=== PATIENT | female | born 1940 | race Caucasian/White ===

== ENCOUNTER 2020-11-05 16:16 | Inpatient (IN) ==
[2020-11-05] MEDS ORDERED: Furosemide 40 MG/4 ML VIAL IVP ONE (17:02)
[2020-11-05] MEDS ORDERED: 0.9 % Sodium Chloride 500 ML IVC ONE (17:17)
[2020-11-05 17:23] LABS: Basophils % 0.1 %; Eosinophils # 0.1 K/mcL (0.0-0.6); Eosinophils % 0.6 %; Hemoglobin 12.7 g/dL (11.5-15.4); Immature Granulocytes % 0.4 % (0-4); Lymphocytes # 0.9 K/mcL (0.6-4.6); Lymphocytes % 10.9 %; Mean Corpuscular Hemoglobin 27.8 pg (28.0-33.3); Mean Corpuscular Volume 89.7 fL (83.0-100.0); Mean Platelet Volume 9.5 fL (9.4-12.4); Monocytes # 0.8 K/mcL (0.0-1.3); Monocytes % 9.2 %; Neutrophils # 6.7 K/mcL (1.6-8.9); Platelet Count 201 K/mcL (140-400); Red Blood Count 4.57 M/mcL (3.82-4.97); Red Cell Distribution Width 14.4 % (11.5-14.5); Segmented Neutrophils % 78.8 %; White Blood Count 8.4 K/mcL (4.3-11.1)
[2020-11-05 17:42] LABS: Bacteria,Urine Few per hpf (None-Few); Bilirubin,Urine Negative (Negative); Blood,Urine Negative (Negative); Clarity,Urine Clear (Clear); Color,Urine Yellow (Yellow); Glucose,Urine (UA) 50 mg/dL (Normal); Hyaline Casts,Urine Few per lpf (None Seen); Ketones,Urine Negative (Negative); Leukocyte Esterase,Urine Large (Negative); Mucus,Urine Few per lpf (None-Few); Nitrite,Urine Negative (Negative); PH,Urine 5.5 pH Units (5.0-8.0); Protein,Urine 50 mg/dL (Neg-Trace); RBC,Urine 0-3 per hpf (0-3); Specific Gravity,Urine 1.026 (1.010-1.025); Squamous Epithelial Cell,Urine Few per hpf (None-Few); Urobilinogen,Urine Normal (Normal); WBC,Urine 30-50 per hpf (0-3)
[2020-11-05 17:44] LABS: BUN/Creatinine Ratio 28 (6-26); Blood Urea Nitrogen 15 mg/dL (8-23); Calcium 9.7 mg/dL (8.6-10.3); Carbon Dioxide 25 mEq/L (23-29); Chloride 105 mEq/L (98-107); Glucose 191 mg/dL (70-105); Magnesium 1.6 mg/dL (1.6-2.6); Osmolality,Calculated 296 (280-300); Potassium 3.9 mEq/L (3.5-5.1); Sodium 140 mEq/L (136-145); eGFR For African Americans > 60 (> 60); eGFR For Non-African Americans > 60 (> 60)
[2020-11-05 17:45] LABS: Troponin I 0.03 ng/mL (< 0.04)
[2020-11-05] MEDS ORDERED: Isovue-370 500 ML BOTTLE IVP ONE (17:54)
[2020-11-05 17:58] LABS: Thyroid Stimulating Hormone 1.712 mcIU/mL (0.340-5.600)
[2020-11-05] MEDS ORDERED: DilTIAZem 50 MG/50 ML IV.SOLN IVC SCH (19:00)
[2020-11-05] MEDS ORDERED: *HR* Heparin 5,000 UNIT/ML VIAL IVP ONE ×2 (20:13→21:17)
[2020-11-05] MEDS ORDERED: *HR* Heparin 5,000 UNIT/ML VIAL IVP PRN ×4 (20:13→21:17)
[2020-11-05] MEDS ORDERED: Heparin 25,000UNIT/250ML 1/2NS 25,000 UNIT/250 ML IV.SOLN IVC SCH (20:15)
[2020-11-05] MEDS ORDERED: Acetaminophen 325 MG TABLET PO PRN (21:07)
[2020-11-05] MEDS ORDERED: Ondansetron 4 MG/2 ML VIAL IVP PRN (21:07)
[2020-11-05] MEDS ORDERED: Naloxone 0.4 MG/ML INJ IVP PRN (21:07)
[2020-11-05] MEDS ORDERED: Perflutren Lipid Microsphere 1.3 ML in 0.9 % Sodium Chloride 8.7 ML IVP PRN (21:09)
[2020-11-05] MEDS ORDERED: *HR* Dextrose 50 % in Water (Vial) 50 ML VIAL IVP PRN (21:41)
[2020-11-05] MEDS ORDERED: D5% in Water 1,000 ML IVC PRN (21:41)
[2020-11-05] MEDS ORDERED: Dextrose Gel 15 GM/37.5 ML TUBE PO PRN ×2 (21:41)
[2020-11-05] MEDS: Furosemide 20 MG/2 ML VIAL IVP SCH (22:37)
[2020-11-05] MEDS: Insulin DETEMIR 100 UNIT/ML X5UNITS SUBQ SCH (22:38)
[2020-11-05 23:25] LABS: Heparin anti-factor XA UFH 0.61 IU/mL (0.30-0.70); INR 1.1; Prothrombin Time 13.2 Seconds (9.4-12.1)
[2020-11-05 23:38] LABS: Chol/HDL Ratio 2.6 (0-4.9); Magnesium 1.4 mg/dL (1.6-2.6)
[2020-11-05] MEDS: Heparin 25,000UNIT/250ML 1/2NS 25,000 UNIT/250 ML IV.SOLN IVC SCH (23:49)
[2020-11-06 06:28] LABS: Hematocrit 38.5 % (35.3-44.9); Hemoglobin 11.9 g/dL (11.5-15.4); Mean Corpuscular HGB Conc 30.9 g/dL (31.6-35.5); Mean Corpuscular Hemoglobin 27.5 pg (28.0-33.3); Mean Corpuscular Volume 88.9 fL (83.0-100.0); Mean Platelet Volume 9.9 fL (9.4-12.4); Platelet Count 211 K/mcL (140-400); Red Blood Count 4.33 M/mcL (3.82-4.97); Red Cell Distribution Width 14.4 % (11.5-14.5); White Blood Count 8.8 K/mcL (4.3-11.1)
[2020-11-06 06:50] LABS: BUN/Creatinine Ratio 22 (6-26); Blood Urea Nitrogen 12 mg/dL (8-23); Calcium 9.1 mg/dL (8.6-10.3); Carbon Dioxide 30 mEq/L (23-29); Chloride 103 mEq/L (98-107); Glucose 75 mg/dL (70-105); Osmolality,Calculated 290 (280-300); Potassium 3.4 mEq/L (3.5-5.1); Sodium 141 mEq/L (136-145); eGFR For African Americans > 60 (> 60); eGFR For Non-African Americans > 60 (> 60)
[2020-11-06] MEDS: Insulin LISPRO 300 UNITS/3 ML VIAL SUBQ SCH ×4 (09:13→20:54)
[2020-11-06] MEDS: Furosemide 20 MG/2 ML VIAL IVP SCH ×2 (09:13→17:00)
[2020-11-06] MEDS: Heparin 25,000UNIT/250ML 1/2NS 25,000 UNIT/250 ML IV.SOLN IVC SCH (15:02)
[2020-11-06] MEDS: Insulin DETEMIR 100 UNIT/ML X5UNITS SUBQ SCH (20:56)
[2020-11-06] MEDS: Cefdinir 300 MG CAPSULE PO SCH (20:56)
[2020-11-07] MEDS: Heparin 25,000UNIT/250ML 1/2NS 25,000 UNIT/250 ML IV.SOLN IVC SCH (02:03)
[2020-11-07 02:54] LABS: Basophils % 0.2 %; Eosinophils # 0.1 K/mcL (0.0-0.6); Eosinophils % 1.2 %; Hematocrit 40.9 % (35.3-44.9); Hemoglobin 12.6 g/dL (11.5-15.4); Immature Granulocytes % 0.5 % (0-4); Lymphocytes # 1.5 K/mcL (0.6-4.6); Lymphocytes % 15.7 %; Mean Corpuscular HGB Conc 30.8 g/dL (31.6-35.5); Mean Corpuscular Hemoglobin 27.7 pg (28.0-33.3); Mean Corpuscular Volume 89.9 fL (83.0-100.0); Monocytes # 0.9 K/mcL (0.0-1.3); Monocytes % 9.2 %; Neutrophils # 7.2 K/mcL (1.6-8.9); Platelet Count 228 K/mcL (140-400); Red Blood Count 4.55 M/mcL (3.82-4.97); Red Cell Distribution Width 14.4 % (11.5-14.5); Segmented Neutrophils % 73.2 %; White Blood Count 9.8 K/mcL (4.3-11.1)
[2020-11-07 03:18] LABS: BUN/Creatinine Ratio 23 (6-26); Blood Urea Nitrogen 15 mg/dL (8-23); Calcium 9.5 mg/dL (8.6-10.3); Carbon Dioxide 30 mEq/L (23-29); Chloride 100 mEq/L (98-107); Glucose 94 mg/dL (70-105); Magnesium 1.9 mg/dL (1.6-2.6); Osmolality,Calculated 289 (280-300); Phosphorous 4.4 mg/dL (2.7-4.5); Potassium 4.3 mEq/L (3.5-5.1); Sodium 139 mEq/L (136-145); eGFR For African Americans > 60 (> 60); eGFR For Non-African Americans > 60 (> 60)
[2020-11-07] MEDS: Insulin LISPRO 300 UNITS/3 ML VIAL SUBQ SCH ×4 (08:22→20:55)
[2020-11-07] MEDS: Cefdinir 300 MG CAPSULE PO SCH (08:31)
[2020-11-07] MEDS: Furosemide 20 MG/2 ML VIAL IVP SCH ×2 (08:33→16:58)
[2020-11-07] MEDS: lisinopriL 5 MG TABLET PO SCH (08:33)
[2020-11-07] MEDS: Ascorbic Acid 500 MG TABLET PO SCH (08:33)
[2020-11-07] MEDS ORDERED: levoFLOXacin 750 MG TABLET PO SCH (11:30)
[2020-11-07] MEDS ORDERED: Apixaban 5 MG TABLET PO SCH (13:00)
[2020-11-07] MEDS: Insulin DETEMIR 100 UNIT/ML X5UNITS SUBQ SCH (21:01)
[2020-11-08] MEDS ORDERED: *HR* Heparin 5,000 UNIT/ML VIAL IVP PRN ×2 (01:00)
[2020-11-08] MEDS ORDERED: Heparin 25,000UNIT/250ML 1/2NS 25,000 UNIT/250 ML IV.SOLN IVC SCH ×2 (01:00)
[2020-11-08 01:08] LABS: Hematocrit 38.4 % (35.3-44.9); Hemoglobin 11.9 g/dL (11.5-15.4); Mean Corpuscular Hemoglobin 27.2 pg (28.0-33.3); Mean Corpuscular Volume 87.9 fL (83.0-100.0); Mean Platelet Volume 9.8 fL (9.4-12.4); Platelet Count 190 K/mcL (140-400); Red Blood Count 4.37 M/mcL (3.82-4.97); Red Cell Distribution Width 14.3 % (11.5-14.5); White Blood Count 6.5 K/mcL (4.3-11.1)
[2020-11-08 01:20] LABS: INR 1.5; Prothrombin Time 17.3 Seconds (9.4-12.1)
[2020-11-08 01:25] LABS: BUN/Creatinine Ratio 25 (6-26); Blood Urea Nitrogen 17 mg/dL (8-23); Calcium 9.4 mg/dL (8.6-10.3); Carbon Dioxide 29 mEq/L (23-29); Chloride 100 mEq/L (98-107); Glucose 177 mg/dL (70-105); Magnesium 1.8 mg/dL (1.6-2.6); Osmolality,Calculated 292 (280-300); Potassium 4.1 mEq/L (3.5-5.1); Sodium 138 mEq/L (136-145); eGFR For African Americans > 60 (> 60); eGFR For Non-African Americans > 60 (> 60)
[2020-11-08] MEDS: Insulin LISPRO 300 UNITS/3 ML VIAL SUBQ SCH ×2 (07:58→11:48)
[2020-11-08] MEDS: lisinopriL 5 MG TABLET PO SCH (08:53)
[2020-11-08] MEDS: Ascorbic Acid 500 MG TABLET PO SCH (08:53)
[2020-11-08] MEDS: Furosemide 20 MG/2 ML VIAL IVP SCH (08:53)
[2020-11-08] MEDS ORDERED: Aspirin Enteric Coated 81 MG Tablet PO SCH (09:00)
[2020-11-08] MEDS ORDERED: levoFLOXacin 250 MG TABLET PO SCH (09:00)
[2020-11-08] MEDS ORDERED: Furosemide 20 MG TABLET PO PRN (12:43)
[2020-11-08] MEDS ORDERED: Apixaban 5 MG TABLET PO SCH (14:45)
[2020-11-08 16:08] VITALS: BP 106/67
[2020-11-09] MEDS ORDERED: Spironolactone 25 MG TABLET PO SCH (09:00)
[2020-11-09] MEDS ORDERED: Metoprolol XL (24 HR) Succ 50 MG TAB.ER.24H PO SCH (09:00)
== END 2020-11-08 17:14 | disposition home or self-care (01) | DRG 175 ==
LOC: 2ANU 16:16 → EMEROOARM 16:16 → SUATTDRO 20:55 → 2ANU 21:12
PROVIDERS: ADMIT Family Medicine; ATTEND Internal Medicine